=== PATIENT | female | born 1955 | race Two or more races ===

== ENCOUNTER 2016-09-20 10:48 | Inpatient (IN) | payer OTHER ==
[~2016-09-20] VITALS: Ht 170.2 cm; Wt 88.9 kg
[2016-09-20 12:35] LABS: APPEARANCE,URINE CLEAR; KETONES,URINE NEGATIVE (NEGATIVE); LEUKOCYTE ESTERASE ,URINE NEGATIVE (NEGATIVE); NITRITE,URINE NEGATIVE (NEGATIVE); PH,URINE 5 (4.5-8.0); PROTEIN,URINE NEGATIVE (NEGATIVE); UROBILINOGEN,URINE NORMAL MG/DL (0.0-1.0)
[2016-09-20 12:36] LABS: BASOPHILS % (AUTO) 1.1 % (0.0-2.0); EOSINOPHILS % (AUTO) 1.6 % (0.0-3.0); LYMPHOCYTES % (AUTO) 33.4 % (20.0-45.0); MEAN CORPUSCULAR HEMOGLOBIN 29.8 PG (27.0-31.0); MEAN CORPUSCULAR VOLUME 90 FL (80-99); MONOCYTES % (AUTO) 5.8 % (1.0-10.0); PLATELET COUNT 232 K/UL (150-450); RED BLOOD COUNT 4.42 M/UL (4.20-5.40); RED CELL DISTRIBUTION WIDTH 12.5 % (11.6-14.8); WHITE BLOOD COUNT 6.4 K/UL (4.8-10.8)
--- NOTE | 2016-09-20 12:40 | Diagnostic Imaging Report ---
Indications: Chest pain Technique: Portable AP chest Findings: Comparison: None Focal opacity with straight upper margin is present within or overlies the medial aspect of the right lung base. Focal soft tissue convexity left cardiophrenic angle. Bones and extra pulmonary soft tissues, cardiomediastinal silhouette, pulmonary vasculature and parenchyma, and pleural surfaces are otherwise unremarkable IMPRESSION: Right basal opacity may represent right middle lobe atelectasis or prominent epicardial fat pad. Prominent epicardial fat pad also present on the left. Otherwise negative portable AP chest
[2016-09-20 12:51] LABS: TROPONIN I < 0.30 ng/mL (<=0.30)
[2016-09-20 12:52] LABS: ALANINE AMINOTRANSFERASE 9 U/L (3-33); ALBUMIN/GLOBULIN RATIO 1.5 (1.0-2.7); ANION GAP 14 (5-15); ASPARTATE AMINO TRANSFERASE 15 U/L (5-40); CALCIUM 9.4 mg/dL (8.6-10.2); CARBON DIOXIDE 26 mEQ/L (20-30); CHLORIDE 99 mEQ/L (98-107); CREATININE 0.8 mg/dL (0.5-0.9); GLOMERULAR FILTRATION RATE > 60 mL/min (>60); HEMOLYSIS 16; SODIUM 139 mEQ/L (135-145); TOTAL PROTEIN 7.5 g/dL (6.6-8.7)
[2016-09-20 13:02] LABS: CKMB < 1.5 ng/mL (< 3.8)
[2016-09-20 13:20] VITALS: BP 129/5
--- NOTE | 2016-09-20 15:53 | Emergency Room Report ---
History of Present Illness General Chief Complaint: Chest Pain Source: Patient Present Illness HPI 61-year-old female presents ED complaining of chest pain x2 days. states pain is left-sided, throbbing, 7/10, radiating down the left arm. No other aggravating or relieving factors. Denies shortness of breath. Denies smoking or drug use. Denies trauma. No other aggravating relieving factors. Denies any other associated symptoms Allergies: Coded Allergies: MORPHINE (Verified Allergy, Unknown, 09/20/16) COPIED FROM UNCODED SECTION Patient History Past Medical History: psych hx Past Surgical History: none Pertinent Family History: none Social History: Denies: alcohol use, drug use, smoking Now: No Immunizations: UTD Reviewed Nursing Documentation: PMH: Agreed, PSxH: Agreed Nursing Documentation-PMH Past Medical History: No History, Except For Hx Cancer: Yes - hairy cell leukemia 1999 History Of Psychiatric Problem: Yes - schizophrenia Review of Systems All Other Systems: negative except mentioned in HPI Physical Exam Vital Signs Date Time Temp Pulse Resp B/P Pulse Ox O2 Delivery O2 Flow Rate FiO2 09/20/16 10:59 83 21 137/71 96 Room Air Sp02 EP Interpretation: reviewed, normal General Appearance: no apparent distress, alert, GCS 15, non-toxic Head: normocephalic, atraumatic Eyes: bilateral eye PERRL, bilateral eye normal inspection ENT: hearing grossly normal, normal pharynx, no angioedema, normal voice Neck: full range of motion, supple/symm/no masses Respiratory: chest non-tender, lungs clear, normal breath sounds, speaking full sentences Cardiovascular #1: regular rate, rhythm, no edema Cardiovascular #2: 2+ carotid (R), 2+ carotid (L), 2+ radial (R), 2+ radial (L) , 2+ dorsalis pedis (R), 2+ dorsalis pedis (L) Gastrointestinal: normal bowel sounds, non tender, soft, non-distended, no guarding, no rebound Rectal: deferred Genitourinary: normal inspection, no CVA tenderness Musculoskeletal: back normal, gait/station normal, normal range of motion, non- tender Neurologic: alert, oriented x3, responsive, motor strength/tone normal, sensory intact, speech normal Psychiatric: judgement/insight normal, memory normal, mood/affect normal, no suicidal/homicidal ideation Reflexes: 3+ bicep (R), 3+ bicep (L), 3+ tricep (R), 3+ tricep (L), 3+ knee (R) , 3+ knee (L) Skin: normal color, no rash, warm/dry, well hydrated Lymphatic: no adenopathy Medical Decision Making Diagnostic Impression: Primary Impression: ACS (acute coronary syndrome) ER Course Hospital Course 61-year-old female presents ED complaining of left-sided chest pain x2 days Differential diagnoses include: MA/unstable angina, contusion, muscle strain, PTX, rib fracture Clinical course Patient placed on stretcher. on cardiac catheterization technician. After initial history and physical I ordered labs, EKG, chest x-ray, ASA labs reviewed- no leukocytosis, hb/hct stable, electrolytes ok, trop negative EKG - NSR, no acute ischemic changes Chest x-ray- no acute process Case discussed with Dr. Kimbrough and he agreed to accept the patient to his service for further care and support I. I feel this is a highly complex case requiring extensive working including EKG/Rhythm strip, Xray/CT/US, Blood/urine lab work, repeat exams while in ED, and administration of strong opiates/narcotics for pain control, admission to hospital or close patient follow up. Diagnosis - ACS admitted to telemetry in serious condition Labs Test 09/20/16 11:50 09/20/16 12:05 Urine Color Yellow Urine Appearance Clear Urine pH 5 (4.5-8.0) Urine Specific [place] 1.020 (1.005-1.035) Urine Protein Negative (NEGATIVE) Urine Glucose (UA) Negative (NEGATIVE) Urine Ketones Negative (NEGATIVE) Urine Occult Blood Negative (NEGATIVE) Urine Nitrite Negative (NEGATIVE) Urine Bilirubin Negative (NEGATIVE) Urine Urobilinogen Normal MG/DL (0.0-1.0) Urine Leukocyte Esterase Negative (NEGATIVE) Urine Opiates Screen Negative (NEGATIVE) Urine Barbiturates Screen Negative (NEGATIVE) Phencyclidine (PCP) Screen Negative (NEGATIVE) Urine Amphetamines Screen Negative (NEGATIVE) Urine Benzodiazepines Screen Negative (NEGATIVE) Urine Cocaine Screen Negative (NEGATIVE) Urine Marijuana (THC) Screen Negative (NEGATIVE) White Blood Count 6.4 K/UL (4.8-10.8) Red Blood Count 4.42 M/UL (4.20-5.40) Hemoglobin 13.1 G/DL (12.0-16.0) Hematocrit 39.9 % (37.0-47.0) Mean Corpuscular Volume 90 FL (80-99) Mean Corpuscular Hemoglobin 29.8 PG (27.0-31.0) Mean Corpuscular Hemoglobin Concent 33.0 G/DL (32.0-36.0) Red Cell Distribution Width 12.5 % (11.6-14.8) Platelet Count 232 K/UL (150-450) Mean Platelet Volume 8.0 FL (6.5-10.1) Neutrophils (%) (Auto) 58.0 % (45.0-75.0) Lymphocytes (%) (Auto) 33.4 % (20.0-45.0) Monocytes (%) (Auto) 5.8 % (1.0-10.0) Eosinophils (%) (Auto) 1.6 % (0.0-3.0) Basophils (%) (Auto) 1.1 % (0.0-2.0) Sodium Level 139 mEQ/L (135-145) Potassium Level 4.0 mEQ/L (3.4-4.9) Chloride Level 99 mEQ/L (98-107) Carbon Dioxide Level 26 mEQ/L (20-30) Anion Gap 14 (5-15) Blood Urea Nitrogen 9 mg/dL (7-23) Creatinine 0.8 mg/dL (0.5-0.9) Estimat Glomerular Filtration Rate > 60 mL/min (>60) Glucose Level 90 mg/dL (74-106) Calcium Level 9.4 mg/dL (8.6-10.2) Total Bilirubin 0.3 mg/dL (0.0-1.2) Aspartate Amino Transf (AST/SGOT) 15 U/L (5-40) Alanine Aminotransferase (ALT/SGPT) 9 U/L (3-33) Alkaline Phosphatase 121 U/L (35-104) Total Creatine Kinase 100 U/L (26-140) Creatine Kinase MB < 1.5 ng/mL (< 3.8) Creatine Kinase MB Relative Index Troponin I < 0.30 ng/mL (<=0.30) Pro-B-Type Natriuretic Peptide 35 pg/mL (0-125) Total Protein 7.5 g/dL (6.6-8.7) Albumin 4.5 g/dL (3.5-5.2) Globulin 3.0 g/dL Albumin/Globulin Ratio 1.5 (1.0-2.7) EKG Diagnostic Results Rate: normal Rhythm: NSR ST Segments: no acute changes ASA given to the pt in ED: No Rhythm Strip Diag. Results EP Interpretation: yes Rhythm: NSR, no PVC's, no ectopy Chest X-Ray Diagnostic Results EP Interpretation: No Findings: no consolidation, no effusion, no pneumothorax, no acute cardiopulmonary disease Number of Views: 1 Last Vital Signs Date Time Temp Pulse Resp B/P Pulse Ox O2 Delivery O2 Flow Rate FiO2 09/20/16 13:20 90 21 129/5 96 Room Air Status: improved Disposition: ADMITTED INPATIENT Condition: Serious Referrals: ESPERANZA RUBIN,REFERRING (PCP) ARVIN HILARIO M.D. Sep 20, 2016 15:53
[2016-09-20 16:01] VITALS: BP 138/75
[2016-09-20] MEDS ORDERED: PANTOPRAZOLE SO40 MG ORAL (16:01)
[2016-09-20] MEDS ORDERED: AMBIEN5 MG ORAL (16:01)
--- NOTE | 2016-09-20 16:24 | Cardiology Progress Note ---
Assessment/Plan Assessment/Plan atypical chest pain wood cell elukemia hs in remission since 1999 obeisty panic disorder all torp neg despit 2 dyas of pain ekg neg stress test in am then fermín if neg [id number] Objective Last 24 Hour Vital Signs Date Time Temp Pulse Resp B/P Pulse Ox O2 Delivery O2 Flow Rate FiO2 09/20/16 16:01 83 21 138/75 97 Room Air 09/20/16 13:20 90 21 129/5 96 Room Air 09/20/16 11:33 83 21 Room Air 09/20/16 10:59 83 21 137/71 96 Room Air Laboratory Tests Test 09/20/16 11:50 09/20/16 12:05 Urine Color Yellow Urine Appearance Clear Urine pH 5 (4.5-8.0) Urine Specific [place] 1.020 (1.005-1.035) Urine Protein Negative (NEGATIVE) Urine Glucose (UA) Negative (NEGATIVE) Urine Ketones Negative (NEGATIVE) Urine Occult Blood Negative (NEGATIVE) Urine Nitrite Negative (NEGATIVE) Urine Bilirubin Negative (NEGATIVE) Urine Urobilinogen Normal MG/DL (0.0-1.0) Urine Leukocyte Esterase Negative (NEGATIVE) Urine Opiates Screen Negative (NEGATIVE) Urine Barbiturates Screen Negative (NEGATIVE) Phencyclidine (PCP) Screen Negative (NEGATIVE) Urine Amphetamines Screen Negative (NEGATIVE) Urine Benzodiazepines Screen Negative (NEGATIVE) Urine Cocaine Screen Negative (NEGATIVE) Urine Marijuana (THC) Screen Negative (NEGATIVE) White Blood Count 6.4 K/UL (4.8-10.8) Red Blood Count 4.42 M/UL (4.20-5.40) Hemoglobin 13.1 G/DL (12.0-16.0) Hematocrit 39.9 % (37.0-47.0) Mean Corpuscular Volume 90 FL (80-99) Mean Corpuscular Hemoglobin 29.8 PG (27.0-31.0) Mean Corpuscular Hemoglobin Concent 33.0 G/DL (32.0-36.0) Red Cell Distribution Width 12.5 % (11.6-14.8) Platelet Count 232 K/UL (150-450) Mean Platelet Volume 8.0 FL (6.5-10.1) Neutrophils (%) (Auto) 58.0 % (45.0-75.0) Lymphocytes (%) (Auto) 33.4 % (20.0-45.0) Monocytes (%) (Auto) 5.8 % (1.0-10.0) Eosinophils (%) (Auto) 1.6 % (0.0-3.0) Basophils (%) (Auto) 1.1 % (0.0-2.0) Sodium Level 139 mEQ/L (135-145) Potassium Level 4.0 mEQ/L (3.4-4.9) Chloride Level 99 mEQ/L (98-107) Carbon Dioxide Level 26 mEQ/L (20-30) Anion Gap 14 (5-15) Blood Urea Nitrogen 9 mg/dL (7-23) Creatinine 0.8 mg/dL (0.5-0.9) Estimat Glomerular Filtration Rate > 60 mL/min (>60) Glucose Level 90 mg/dL (74-106) Calcium Level 9.4 mg/dL (8.6-10.2) Total Bilirubin 0.3 mg/dL (0.0-1.2) Aspartate Amino Transf (AST/SGOT) 15 U/L (5-40) Alanine Aminotransferase (ALT/SGPT) 9 U/L (3-33) Alkaline Phosphatase 121 U/L (35-104) H Total Creatine Kinase 100 U/L (26-140) Creatine Kinase MB < 1.5 ng/mL (< 3.8) Creatine Kinase MB Relative Index Troponin I < 0.30 ng/mL (<=0.30) Pro-B-Type Natriuretic Peptide 35 pg/mL (0-125) Total Protein 7.5 g/dL (6.6-8.7) Albumin 4.5 g/dL (3.5-5.2) Globulin 3.0 g/dL Albumin/Globulin Ratio 1.5 (1.0-2.7) AMBAR ALVARADO Sep 20, 2016 16:24
[2016-09-20] MEDS ORDERED: Nitroglycerin Subl 0.4mg tab (Bottle Of 25) SL PRN (16:30)
[2016-09-20] MEDS ORDERED: Morphine Sulfate 2mg/ml Inj IVP PRN (16:30)
[2016-09-20] MEDS ORDERED: Enalaprilat 2.5mg/2ml Inj IV PRN (16:30)
[2016-09-20] MEDS ORDERED: Miralax 17gm pkt ORAL PRN (16:30)
[2016-09-20] MEDS ORDERED: Diltiazem 25mg/5ml IV PRN (16:30)
[2016-09-20] MEDS ORDERED: DuoNeb 0.5-3(2.5)mg/3ml neb HHN PRN (16:30)
[2016-09-20 16:53] VITALS: BP 121/61
--- NOTE | 2016-09-20 20:28 | Consultation ---
DATE OF CONSULTATION: 09/20/2016 CARDIOLOGY CONSULTATION REFERRING PHYSICIAN: Cheyanne Kimbrough M.D. REASON FOR REFERRAL: Chest pain. HISTORY OF PRESENT ILLNESS: This is a 61-year-old female, who presents to the hospital because of two days of pain in the chest with basically a sensation of dull ache, occasional sharp shooting pain in the left side of the breast. There is no association with activity or coughing or taking a deep breath or twisting or turning. No relieving exacerbating factors identified by the patient. She has occasionally during the past few days vomit, a panic mode at times with some shortness of breath associated with the pain. She tries to calm herself down. Occasionally, she gets up in the middle of the night because of the panic and then takes some panic anxiety medication and she goes back to bed. She uses two to three pillows for her reflux. She occasionally has palpitations, occasionally has dizziness or lightheadedness. The pains in her chest have been ongoing constantly for the last two days. No relieving exacerbating factors again identified. The patient does have some numbness and tingling sensation occasionally in the left arm, but that is intermittent and not necessarily associated with the pain. PAST MEDICAL HISTORY: Positive for history of hairy cell leukemia, which she is felt to be in remission since 1999 and she has gastroesophageal reflux disease and no heart attack. No cancer. Otherwise no stroke, no hepatitis, or tuberculosis. No asthma or emphysema. No ulcers. No kidney problems, liver problems, thyroid problems, or anemia. She does have some arthritis in her knees. ALLERGIES: She is allergic to morphine. SOCIAL HISTORY: She does not smoke in the past two days. She admits to having smoking one cigarette every two days and no drugs for the past two years. She used to use crack cocaine before and no alcohol. REVIEW OF SYSTEMS: Gastrointestinal: She denies any nausea, vomiting, diarrhea, or constipation. Genitourinary: Negative. Pulmonary: Occasional coughing. Constitutional: Negative. Neurologic: Numbness, tingling, and sensation in the patient's left arm. PHYSICAL EXAMINATION: GENERAL: Shows an obese middle-aged female, in no apparent distress. NECK: Supple. No jugular venous distention. LUNGS: Clear to auscultation and percussion. CARDIAC: S1 is normal. S2 is normal. Regular rate and rhythm. No heaves, thrills, gallops, or rubs are noted. The area of the sternum does not appear to be tender to palpation. However, the area just lateral to the sternum on palpation with the stethoscope seemed to cause patient's pain. This is different than the pain that she has been experiencing for the past two days. ABDOMEN: Soft and nontender. Positive bowel sounds. Obese. EXTREMITIES: No clubbing, cyanosis, nor edema. NEUROLOGIC: She is awake, alert, responsive, in no apparent distress. LABORATORY AND DIAGNOSTIC DATA: White count of 6.2 with hemoglobin 13.1, and platelets 232,000. Sodium is 139, potassium 4.0, chloride 99, bicarbonate 26, BUN of 9, creatinine 0.8, and glucose of 90. Liver function tests are all normal. Alkaline phosphatase is 100.1. Troponin is less than 0.01. ProBNP is only 35. Total protein is 7.5. Albumin is 4.5. Her urinalysis is fairly unremarkable. Toxicology screen is negative. Her EKG is completely normal and chest x-ray has been performed interpreted by the radiologist, right basilar opacity with right middle lobe atelectasis or prominent, epicardial fat pad, otherwise negative. ASSESSMENT: 1. Atypical chest pain. 2. Anxiety and panic disorder. 3. Gastroesophageal reflux disease. 4. Overweight. 5. History of hairy cell leukemia. Dr. Kimbrough, this patient was seen in cardiac consultation. The patient does not have any changes on her EKG. There is no evidence of cardiac enzyme abnormality despite two days of constant pain and no electrocardiographic changes. She has an anxiety component because I am not able to reproduce her pain on palpation. I would recommend that she undergo a stress test prior to discharge and I will order that as such for tomorrow. Vidal Basurto M.D. DR: ANJUM JOB#: [id number] CC:
[2016-09-20] MEDS: Heparin 5000 units/ml inj SUBQ SCH (20:49)
[2016-09-20 21:53] LABS: TROPONIN I < 0.30 ng/mL (<=0.30)
--- NOTE | 2016-09-20 23:26 | History and Physical ---
History of Present Illness General Date patient seen: Sep 20, 2016 Reason for Hospitalization: Chest Pain Present Illness HPI 61-year-old female with hx of hairy cell leukemia presented to ED complaining of chest pain, left-sided, throbbing, 7/10, radiating down the left arm for the last two days. No other aggravating or relieving factors. Denies shortness of breath. Denies smoking or drug use.Pt is admitted to rule out ACS. Allergies: Coded Allergies: MORPHINE (Verified Allergy, Unknown, 09/20/16) COPIED FROM UNCODED SECTION Medication History Scheduled Pantoprazole* (Pantoprazole*), 40 MG ORAL DAILY, (Reported) Scheduled PRN Zolpidem Tartrate* (Ambien*), 5 MG ORAL BEDTIME PRN for Insomnia, (Reported) Patient History Healthcare decision maker Resuscitation status Full Code Advanced Directive on File Past Medical/Surgical History Past Medical/Surgical History: (1) Hairy cell leukemia Review of Systems All Other Systems: negative except mentioned in HPI Physical Exam General Appearance: WD/WN Lines, tubes and drains: peripheral HEENT: normocephalic, atraumatic Neck: non-tender, normal alignment Respiratory/Chest: chest wall non-tender, lungs clear Cardiovascular/Chest: normal peripheral pulses, normal rate, regular rhythm Abdomen: normal bowel sounds Genitourinary/Rectal: normal genital exam Extremities: normal range of motion Skin Exam: normal pigmentation Last 24 Hour Vital Signs Date Time Temp Pulse Resp B/P Pulse Ox O2 Delivery O2 Flow Rate FiO2 09/20/16 20:00 97 09/20/16 19:00 70 18 Room Air 09/20/16 18:01 75 21 122/64 97 Room Air 09/20/16 16:53 72 21 121/61 97 Room Air 09/20/16 16:01 83 21 138/75 97 Room Air 09/20/16 13:20 90 21 129/5 96 Room Air 09/20/16 11:33 83 21 Room Air 09/20/16 10:59 83 21 137/71 96 Room Air Laboratory Tests Test 09/20/16 11:50 09/20/16 12:05 09/20/16 21:15 Urine Color Yellow Urine Appearance Clear Urine pH 5 (4.5-8.0) Urine Specific [place] 1.020 (1.005-1.035) Urine Protein Negative (NEGATIVE) Urine Glucose (UA) Negative (NEGATIVE) Urine Ketones Negative (NEGATIVE) Urine Occult Blood Negative (NEGATIVE) Urine Nitrite Negative (NEGATIVE) Urine Bilirubin Negative (NEGATIVE) Urine Urobilinogen Normal MG/DL (0.0-1.0) Urine Leukocyte Esterase Negative (NEGATIVE) Urine Opiates Screen Negative (NEGATIVE) Urine Barbiturates Screen Negative (NEGATIVE) Phencyclidine (PCP) Screen Negative (NEGATIVE) Urine Amphetamines Screen Negative (NEGATIVE) Urine Benzodiazepines Screen Negative (NEGATIVE) Urine Cocaine Screen Negative (NEGATIVE) Urine Marijuana (THC) Screen Negative (NEGATIVE) White Blood Count 6.4 K/UL (4.8-10.8) Red Blood Count 4.42 M/UL (4.20-5.40) Hemoglobin 13.1 G/DL (12.0-16.0) Hematocrit 39.9 % (37.0-47.0) Mean Corpuscular Volume 90 FL (80-99) Mean Corpuscular Hemoglobin 29.8 PG (27.0-31.0) Mean Corpuscular Hemoglobin Concent 33.0 G/DL (32.0-36.0) Red Cell Distribution Width 12.5 % (11.6-14.8) Platelet Count 232 K/UL (150-450) Mean Platelet Volume 8.0 FL (6.5-10.1) Neutrophils (%) (Auto) 58.0 % (45.0-75.0) Lymphocytes (%) (Auto) 33.4 % (20.0-45.0) Monocytes (%) (Auto) 5.8 % (1.0-10.0) Eosinophils (%) (Auto) 1.6 % (0.0-3.0) Basophils (%) (Auto) 1.1 % (0.0-2.0) Sodium Level 139 mEQ/L (135-145) Potassium Level 4.0 mEQ/L (3.4-4.9) Chloride Level 99 mEQ/L (98-107) Carbon Dioxide Level 26 mEQ/L (20-30) Anion Gap 14 (5-15) Blood Urea Nitrogen 9 mg/dL (7-23) Creatinine 0.8 mg/dL (0.5-0.9) Estimat Glomerular Filtration Rate > 60 mL/min (>60) Glucose Level 90 mg/dL (74-106) Calcium Level 9.4 mg/dL (8.6-10.2) Total Bilirubin 0.3 mg/dL (0.0-1.2) Aspartate Amino Transf (AST/SGOT) 15 U/L (5-40) Alanine Aminotransferase (ALT/SGPT) 9 U/L (3-33) Alkaline Phosphatase 121 U/L (35-104) H Total Creatine Kinase 100 U/L (26-140) Creatine Kinase MB < 1.5 ng/mL (< 3.8) Creatine Kinase MB Relative Index Troponin I < 0.30 ng/mL (<=0.30) < 0.30 ng/mL (<=0.30) Pro-B-Type Natriuretic Peptide 35 pg/mL (0-125) Total Protein 7.5 g/dL (6.6-8.7) Albumin 4.5 g/dL (3.5-5.2) Globulin 3.0 g/dL Albumin/Globulin Ratio 1.5 (1.0-2.7) Height (Feet): 5 Height (Inches): 7.00 Weight (Pounds): 196 Medications Current Medications Medications (Trade) Dose Ordered Sig/Rustam Route PRN Reason Start Time Stop Time Status Last Admin Dose Admin Acetaminophen (Tylenol) 650 mg Q4H PRN ORAL FEVER 09/20/16 16:30 10/20/16 16:29 09/20/16 19:12 Albuterol/ Ipratropium (DuoNeb 0.5-3(2.5)mg/3ml) 3 ml Q4H PRN HHN Shortness of Breath 09/20/16 16:30 09/25/16 16:29 Aspirin (ASA) 162 mg DAILY ORAL 09/21/16 09:00 10/21/16 08:59 Diltiazem HCl (Cardizem) 10 mg EVERY HOUR PRN IV heart rate more than 120, 09/20/16 16:30 10/20/16 16:29 Enalaprilat (Vasotec) 2.5 mg EVERY 6 HOURS PRN IV sbp more than 160 09/20/16 16:30 10/20/16 16:29 Heparin Sodium (Porcine) (Heparin 5000 units/ml) 5,000 units EVERY 12 HOURS SUBQ 09/20/16 21:00 10/20/16 20:59 09/20/16 20:49 Ketorolac Tromethamine (Toradol 30mg) 30 mg Q6H PRN IV moderate pain ( 4-6) 09/20/16 16:30 09/25/16 16:29 Nitroglycerin (Ntg) 0.4 mg Q5M PRN SL Prn Chest Pain 09/20/16 16:30 10/20/16 16:29 Ondansetron HCl (Zofran) 4 mg Q6H PRN IVP Nausea & Vomiting 09/20/16 16:30 10/20/16 16:29 Pantoprazole (Protonix) 40 mg DAILY ORAL 09/21/16 09:00 10/21/16 08:59 Polyethylene Glycol (Miralax) 17 gm DAILYPRN PRN ORAL Constipation 09/20/16 16:30 10/20/16 16:29 Temazepam (Restoril) 15 mg HSPRN PRN ORAL Insomnia 09/20/16 16:30 09/27/16 16:29 09/20/16 22:18 Assessment/Plan Problem List: (1) ACS (acute coronary syndrome) ICD Codes: I24.9 - Acute ischemic heart disease, unspecified SNOMED: 973016841 Assessment/Plan serial ekg, torponin echocardiogram cardiology to see stress testing in am. MALOU TAYLOR Sep 20, 2016 23:26
[2016-09-21] VITALS: BP 132/70
[2016-09-21 04:00] VITALS: BP 119/73
[2016-09-21 06:28] LABS: EOSINOPHILS % (AUTO) 2.8 % (0.0-3.0); LYMPHOCYTES % (AUTO) 31.1 % (20.0-45.0); MEAN CORPUSCULAR HEMOGLOBIN 29.8 PG (27.0-31.0); MEAN CORPUSCULAR HGB CONC 33.2 G/DL (32.0-36.0); MEAN CORPUSCULAR VOLUME 90 FL (80-99); MONOCYTES % (AUTO) 5.6 % (1.0-10.0); NEUTROPHILS % (AUTO) 59.5 % (45.0-75.0); PLATELET COUNT 224 K/UL (150-450); RED BLOOD COUNT 4.28 M/UL (4.20-5.40); RED CELL DISTRIBUTION WIDTH 12.2 % (11.6-14.8); WHITE BLOOD COUNT 6.1 K/UL (4.8-10.8)
[2016-09-21 06:43] LABS: INR 1.1 (0.9-1.1)
[2016-09-21 06:49] LABS: CHOLESTEROL 206 mg/dL (< 200); CHOLESTEROL/HDL RATIO 5.6 (3.3-4.4); CRP QUANT < 0.3 mg/dL (< 0.5); HEMOLYSIS 4; LDL CHOLESTEROL (CALC.) 147 mg/dL (60-99)
[2016-09-21 07:01] LABS: TROPONIN I < 0.30 ng/mL (<=0.30)
[2016-09-21 07:49] VITALS: BP 122/65
[2016-09-21] MEDS: Aspirin Baby 81mg ORAL SCH (08:37)
[2016-09-21] MEDS: Heparin 5000 units/ml inj SUBQ SCH ×2 (08:39→20:31)
[2016-09-21 11:18] VITALS: BP 126/71
--- NOTE | 2016-09-21 13:15 | Pulmonology Progress Note ---
Assessment/Plan Problems: (1) ACS (acute coronary syndrome) Assessment/Plan awaiting stress study phenergen for cough Subjective ROS Limited/Unobtainable: No Constitutional: Reports: no symptoms HEENT: Repors: no symptoms Respiratory: Reports: no symptoms Genitourinary: Reports: no symptoms Allergies: Coded Allergies: MORPHINE (Verified Allergy, Unknown, 09/20/16) COPIED FROM UNCODED SECTION Objective Last 24 Hour Vital Signs Date Time Temp Pulse Resp B/P Pulse Ox O2 Delivery O2 Flow Rate FiO2 09/21/16 11:18 96.8 85 18 126/71 99 Room Air 09/21/16 08:00 88 09/21/16 07:49 97.2 78 18 122/65 100 Room Air 09/21/16 07:08 85 18 99 Room Air 21 09/21/16 06:48 21 09/21/16 06:48 84 18 98 Room Air 21 09/21/16 06:47 84 18 Room Air 09/21/16 04:00 72 09/21/16 04:00 97.3 71 20 119/73 94 Room Air 09/21/16 00:00 97.9 71 20 132/70 98 Room Air 09/21/16 00:00 78 09/20/16 20:00 97 09/20/16 19:00 70 18 Room Air 09/20/16 18:01 75 21 122/64 97 Room Air 09/20/16 16:53 72 21 121/61 97 Room Air 09/20/16 16:01 83 21 138/75 97 Room Air 09/20/16 13:20 90 21 129/5 96 Room Air Intake and Output 09/20/16 09/21/16 19:00 07:00 Intake Total 0 ml 240 ml Balance 0 ml 240 ml Intake Oral 0 ml 240 ml # Voids 2 # Bowel Movements 1 General Appearance: WD/WN, no acute distress HEENT: normocephalic, atraumatic Respiratory/Chest: chest wall non-tender, lungs clear Breasts: no masses Cardiovascular: normal peripheral pulses, normal rate, regular rhythm Abdomen: normal bowel sounds, soft, non tender Extremities: no cyanosis Skin: no rash, no lesions Lymphatic: no neck adenopathy Musculoskeletal: normal muscle bulk Laboratory Tests 09/20/16 21:15: Troponin I < 0.30 09/21/16 05:20: Troponin I < 0.30, White Blood Count 6.1, Red Blood Count 4.28, Hemoglobin 12.8 , Hematocrit 38.4, Mean Corpuscular Volume 90, Mean Corpuscular Hemoglobin 29.8 , Mean Corpuscular Hemoglobin Concent 33.2, Red Cell Distribution Width 12.2, Platelet Count 224, Mean Platelet Volume 7.0, Neutrophils (%) (Auto) 59.5, Lymphocytes (%) (Auto) 31.1, Monocytes (%) (Auto) 5.6, Eosinophils (%) (Auto) 2.8, Basophils (%) (Auto) 1.0, Prothrombin Time 11.0, Prothromb Time International Ratio 1.1, Activated Partial Thromboplast Time 31, C-Reactive Protein, Quantitative < 0.3, Triglycerides Level 108, Cholesterol Level 206H, LDL Cholesterol 147H, HDL Cholesterol 37, Cholesterol/HDL Ratio 5.6H, Thyroid Stimulating Hormone (TSH) 1.570 Current Medications Medications (Trade) Dose Ordered Sig/Rustam Route PRN Reason Start Time Stop Time Status Last Admin Dose Admin Acetaminophen (Tylenol) 650 mg Q4H PRN ORAL Mild Pain/Temp > 100.5 09/21/16 12:30 10/21/16 12:29 09/21/16 12:15 Albuterol/ Ipratropium (DuoNeb 0.5-3(2.5)mg/3ml) 3 ml Q4H PRN HHN Shortness of Breath 09/20/16 16:30 09/25/16 16:29 09/21/16 06:48 Aspirin (ASA) 162 mg DAILY ORAL 09/21/16 09:00 10/21/16 08:59 09/21/16 08:37 Diltiazem HCl (Cardizem) 10 mg EVERY HOUR PRN IV heart rate more than 120, 09/20/16 16:30 10/20/16 16:29 Enalaprilat (Vasotec) 2.5 mg EVERY 6 HOURS PRN IV sbp more than 160 09/20/16 16:30 10/20/16 16:29 Heparin Sodium (Porcine) (Heparin 5000 units/ml) 5,000 units EVERY 12 HOURS SUBQ 09/20/16 21:00 10/20/16 20:59 09/21/16 08:39 Ketorolac Tromethamine (Toradol 30mg) 30 mg Q6H PRN IV moderate pain ( 4-6) 09/20/16 16:30 09/25/16 16:29 Nitroglycerin (Ntg) 0.4 mg Q5M PRN SL Prn Chest Pain 09/20/16 16:30 10/20/16 16:29 Ondansetron HCl (Zofran) 4 mg Q6H PRN IVP Nausea & Vomiting 09/20/16 16:30 10/20/16 16:29 Pantoprazole (Protonix) 40 mg DAILY ORAL 09/21/16 09:00 10/21/16 08:59 09/21/16 08:37 Polyethylene Glycol (Miralax) 17 gm DAILYPRN PRN ORAL Constipation 09/20/16 16:30 10/20/16 16:29 Temazepam (Restoril) 15 mg HSPRN PRN ORAL Insomnia 09/20/16 16:30 09/27/16 16:29 09/20/16 22:18 MALOU TAYLOR Sep 21, 2016 13:15
[2016-09-21] MEDS ORDERED: Promethazine/Codeine 5ml UD ORAL PRN (14:00)
[2016-09-21 16:00] VITALS: BP 160/96
[2016-09-21] MEDS ORDERED: Vancomycin 1250mg/D5W 275ml IVPB ONE ×2 (18:00)
[2016-09-21] MEDS: Ketorolac 30mg Inj IV PRN (18:51)
--- NOTE | 2016-09-21 19:40 | Cardiology Progress Note ---
Assessment/Plan Assessment/Plan 1. Atypical chest pain. 2. Anxiety and panic disorder. 3. Gastroesophageal reflux disease. 4. Overweight. 5. History of hairy cell leukemia trop negt ekg natividad echo neg stress test neg dc tle ok to dc form cardiac viedw point Subjective Cardiovascular: Reports: lightheadedness, Denies: chest pain Respiratory: Denies: shortness of breath Gastrointestinal/Abdominal: Denies: abdomen distended Genitourinary: Denies: burning Subjective head ache adn leg paijn Objective Last 24 Hour Vital Signs Date Time Temp Pulse Resp B/P Pulse Ox O2 Delivery O2 Flow Rate FiO2 09/21/16 19:35 112 18 Room Air 09/21/16 17:27 100.0 09/21/16 16:00 101.5 113 21 160/96 98 Room Air 09/21/16 11:18 96.8 85 18 126/71 99 Room Air 09/21/16 08:00 88 09/21/16 07:49 97.2 78 18 122/65 100 Room Air 09/21/16 07:08 85 18 99 Room Air 21 09/21/16 06:48 21 09/21/16 06:48 84 18 98 Room Air 21 09/21/16 06:47 84 18 Room Air 09/21/16 04:00 72 09/21/16 04:00 97.3 71 20 119/73 94 Room Air 09/21/16 00:00 97.9 71 20 132/70 98 Room Air 09/21/16 00:00 78 09/20/16 20:00 97 General Appearance: no apparent distress, alert Neck: supple Cardiovascular: normal rate, regular rhythm Respiratory/Chest: lungs clear, normal breath sounds Abdomen: normal bowel sounds, non tender, soft Extremities: no swelling Intake and Output 09/20/16 09/21/16 19:00 07:00 Intake Total 0 ml 240 ml Balance 0 ml 240 ml Intake Oral 0 ml 240 ml # Voids 2 # Bowel Movements 1 Laboratory Tests Test 09/20/16 21:15 09/21/16 05:20 Troponin I < 0.30 ng/mL (<=0.30) < 0.30 ng/mL (<=0.30) White Blood Count 6.1 K/UL (4.8-10.8) Red Blood Count 4.28 M/UL (4.20-5.40) Hemoglobin 12.8 G/DL (12.0-16.0) Hematocrit 38.4 % (37.0-47.0) Mean Corpuscular Volume 90 FL (80-99) Mean Corpuscular Hemoglobin 29.8 PG (27.0-31.0) Mean Corpuscular Hemoglobin Concent 33.2 G/DL (32.0-36.0) Red Cell Distribution Width 12.2 % (11.6-14.8) Platelet Count 224 K/UL (150-450) Mean Platelet Volume 7.0 FL (6.5-10.1) Neutrophils (%) (Auto) 59.5 % (45.0-75.0) Lymphocytes (%) (Auto) 31.1 % (20.0-45.0) Monocytes (%) (Auto) 5.6 % (1.0-10.0) Eosinophils (%) (Auto) 2.8 % (0.0-3.0) Basophils (%) (Auto) 1.0 % (0.0-2.0) Prothrombin Time 11.0 SEC (9.30-11.50) Prothromb Time International Ratio 1.1 (0.9-1.1) Activated Partial Thromboplast Time 31 SEC (23-33) C-Reactive Protein, Quantitative < 0.3 mg/dL (< 0.5) Triglycerides Level 108 mg/dL (< 150) Cholesterol Level 206 mg/dL (< 200) H LDL Cholesterol 147 mg/dL (60-99) H HDL Cholesterol 37 mg/dL (> 60) Cholesterol/HDL Ratio 5.6 (3.3-4.4) H Thyroid Stimulating Hormone (TSH) 1.570 uIU/mL (0.300-4.500) AMBAR ALVARADO Sep 21, 2016 19:40
[2016-09-21 20:00] VITALS: BP 133/57
[2016-09-21 21:02] LABS: APPEARANCE,URINE CLEAR; KETONES,URINE NEGATIVE (NEGATIVE); LEUKOCYTE ESTERASE ,URINE NEGATIVE (NEGATIVE); NITRITE,URINE NEGATIVE (NEGATIVE); PH,URINE 5 (4.5-8.0); PROTEIN,URINE NEGATIVE (NEGATIVE); UROBILINOGEN,URINE NORMAL MG/DL (0.0-1.0)
[2016-09-21 21:20] LABS: RBC,URINE 0-2 /HPF (0 - 2); WBC,URINE 0-2 /HPF (0 - 2)
[2016-09-21 21:21] LABS: BACTERIA,URINE FEW /HPF; SQUAMOUS EPITHELIAL CELL,UR MODERATE /LPF (NONE/OCC)
[2016-09-21] MEDS: Piperacillin/Tazobactam 3.375 GM in D5W 110 ML IVPB SCH (21:51)
[2016-09-22 00:08] VITALS: BP 121/69
[2016-09-22] MEDS: Ketorolac 30mg Inj IV PRN ×2 (01:52→11:03)
[2016-09-22] MEDS: Piperacillin/Tazobactam 3.375 GM in D5W 110 ML IVPB SCH ×3 (04:07→20:25)
[2016-09-22 04:12] VITALS: BP 140/69
[2016-09-22] MEDS ORDERED: Vancomycin 750mg/D5W 275ml IVPB SCH ×2 (06:00)
[2016-09-22 07:57] VITALS: BP 117/60
[2016-09-22 08:34] LABS: TROPONIN I < 0.30 ng/mL (<=0.30)
[2016-09-22] MEDS: Aspirin Baby 81mg ORAL SCH (09:13)
[2016-09-22] MEDS: Heparin 5000 units/ml inj SUBQ SCH ×2 (09:14→20:32)
--- NOTE | 2016-09-22 11:59 | Diagnostic Imaging Report ---
Indication: Dyspnea Comparison: 09/20/16 A single view chest radiograph was obtained. Findings: No definite infiltrate or pulmonary vascular congestion identified. The heart is normal in size. The aorta is mildly enlarged consistent with atherosclerotic vascular disease. The bones are osteopenic. Impression: No acute disease
[2016-09-22 12:49] VITALS: BP 128/65
[2016-09-22] MEDS ORDERED: Diltiazem 25mg/5ml IV PRN (14:00)
[2016-09-22] MEDS ORDERED: Nitroglycerin Subl 0.4mg tab (Bottle Of 25) SL PRN (14:05)
[2016-09-22 16:00] VITALS: BP 108/48
[2016-09-22] MEDS ORDERED: DuoNeb 0.5-3(2.5)mg/3ml neb HHN PRN (16:30)
[2016-09-22] MEDS ORDERED: Ketorolac 30mg Inj IV PRN (16:30)
[2016-09-22] MEDS ORDERED: Miralax 17gm pkt ORAL PRN (16:30)
[2016-09-22] MEDS: Vancomycin 750 MG in D5W 275 ML IVPB SCH (17:47)
[2016-09-22] MEDS ORDERED: Enalaprilat 2.5mg/2ml Inj IV PRN (18:00)
[2016-09-22 19:00] VITALS: BP 120/57
[2016-09-22] MEDS: Promethazine/Codeine 5ml UD ORAL PRN (22:42)
--- NOTE | 2016-09-22 23:35 | Cardiology Report ---
APPROVED REPORT EKG Measurement Heart [id number] Normal sinus rhythm Nonspecific T wave abnormality Prolonged QT Abnormal ECG
--- NOTE | 2016-09-22 23:40 | Pulmonology Progress Note ---
Assessment/Plan Problems: (1) ACS (acute coronary syndrome) Assessment/Plan awaiting stress study phenergen for cough afebrile now no cultutes yet check cxr. Subjective ROS Limited/Unobtainable: No Interval Events: feeling better, asymptoamtic Constitutional: Reports: no symptoms Allergies: Coded Allergies: MORPHINE (Verified Allergy, Unknown, 09/20/16) COPIED FROM UNCODED SECTION Objective Last 24 Hour Vital Signs Date Time Temp Pulse Resp B/P Pulse Ox O2 Delivery O2 Flow Rate FiO2 09/22/16 19:30 90 20 Room Air 21 09/22/16 19:00 98.6 93 20 120/57 09/22/16 16:00 99.1 101 20 108/48 Room Air 09/22/16 12:49 99.1 102 18 128/65 97 Room Air 09/22/16 11:33 98.6 09/22/16 07:57 98.6 110 18 117/60 99 Room Air 09/22/16 07:42 95 18 Room Air 09/22/16 04:12 98.1 112 18 140/69 95 Room Air 09/22/16 00:08 98.7 116 19 121/69 94 Room Air Intake and Output 09/21/16 09/22/16 19:00 07:00 Intake Total 610 ml 680.000 ml Balance 610 ml 680.000 ml Intake Oral 610 ml 240 ml IV Total 440.000 ml # Voids 6 3 Objective General Appearance: WD/WN HEENT: normocephalic, atraumatic, PERRL Respiratory/Chest: lungs clear Breasts: no masses Cardiovascular: normal peripheral pulses Abdomen: normal bowel sounds, soft, non tender Genitourinary: normal external genitalia Extremities: no clubbing 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, no motor/sensory deficits Microbiology Date/Time Source Procedure Growth Status 09/21/16 21:00 Indwelling Cath Urine Culture - Preliminary NO GROWTH Resulted Laboratory Tests 09/22/16 06:45: Troponin I < 0.30 Current Medications Medications (Trade) Dose Ordered Sig/Rustam Route PRN Reason Start Time Stop Time Status Last Admin Dose Admin Acetaminophen (Tylenol) 650 mg Q4H PRN ORAL Mild Pain/Temp > 100.5 09/22/16 16:30 10/22/16 16:29 09/22/16 17:49 Albuterol/ Ipratropium (DuoNeb 0.5-3(2.5)mg/3ml) 3 ml Q4H PRN HHN Shortness of Breath 09/22/16 16:30 09/27/16 16:29 Aspirin (ASA) 162 mg DAILY ORAL 09/23/16 09:00 10/23/16 08:59 Heparin Sodium (Porcine) (Heparin 5000 units/ml) 5,000 units EVERY 12 HOURS SUBQ 09/22/16 21:00 10/22/16 20:59 09/22/16 20:32 Ketorolac Tromethamine (Toradol 30mg) 30 mg Q6H PRN IV moderate pain ( 4-6) 09/22/16 16:30 09/27/16 16:29 09/22/16 17:18 Nitroglycerin (Ntg) 0.4 mg Q5M PRN SL Prn Chest Pain 09/22/16 14:05 10/22/16 14:04 Ondansetron HCl (Zofran) 4 mg Q6H PRN IVP Nausea & Vomiting 09/22/16 16:30 10/22/16 16:29 Pantoprazole (Protonix) 40 mg DAILY ORAL 09/23/16 09:00 10/23/16 08:59 Piperacillin Sod/ Tazobactam Sod 3.375 gm/Dextrose 110 ml @ 27.5 mls/hr Q8HR@0400,1200,2000 IVPB 09/22/16 20:00 09/26/16 19:59 09/22/16 20:25 Polyethylene Glycol (Miralax) 17 gm DAILYPRN PRN ORAL Constipation 09/22/16 16:30 10/22/16 16:29 Promethazine HCl/ Codeine (Phenergan with Codeine) 5 ml Q4H PRN ORAL For Cough 09/22/16 18:00 10/22/16 17:59 09/22/16 22:42 Temazepam (Restoril) 15 mg HSPRN PRN ORAL Insomnia 09/22/16 16:30 09/29/16 16:29 09/22/16 22:41 Vancomycin HCl (Vanco rx to dose) 1 ea DAILY PRN MISC Per rx protocol 09/23/16 09:00 10/23/16 08:59 Vancomycin HCl/ Dextrose (Vancomycin/D5W) 275 ml @ 183.708 mls/hr Q12HR@0600,1800 IVPB 09/22/16 18:00 09/26/16 17:59 09/22/16 17:47 MALOU TAYLOR Sep 22, 2016 23:40
[2016-09-23] VITALS: BP 130/61
[2016-09-23 04:00] VITALS: BP 130/60
[2016-09-23] MEDS: Piperacillin/Tazobactam 3.375 GM in D5W 110 ML IVPB SCH ×3 (04:27→20:10)
[2016-09-23] MEDS: Promethazine/Codeine 5ml UD ORAL PRN ×4 (04:28→23:52)
[2016-09-23 05:57] LABS: BASOPHILS % (AUTO) 0.5 % (0.0-2.0); EOSINOPHILS % (AUTO) 0.4 % (0.0-3.0); LYMPHOCYTES % (AUTO) 13.7 % (20.0-45.0); MEAN CORPUSCULAR HGB CONC 34.1 G/DL (32.0-36.0); MEAN CORPUSCULAR VOLUME 88 FL (80-99); MEAN PLATELET VOLUME 8.1 FL (6.5-10.1); MONOCYTES % (AUTO) 4.5 % (1.0-10.0); NEUTROPHILS % (AUTO) 80.9 % (45.0-75.0); PLATELET COUNT 162 K/UL (150-450); RED BLOOD COUNT 4.19 M/UL (4.20-5.40); RED CELL DISTRIBUTION WIDTH 12.2 % (11.6-14.8); WHITE BLOOD COUNT 5.3 K/UL (4.8-10.8)
[2016-09-23] MEDS: Vancomycin 750 MG in D5W 275 ML IVPB SCH (06:00)
[2016-09-23 06:20] LABS: ALANINE AMINOTRANSFERASE 9 U/L (3-33); ALBUMIN/GLOBULIN RATIO 1.1 (1.0-2.7); ANION GAP 16 (5-15); ASPARTATE AMINO TRANSFERASE 18 U/L (5-40); CALCIUM 8.6 mg/dL (8.6-10.2); CARBON DIOXIDE 24 mEQ/L (20-30); CHLORIDE 99 mEQ/L (98-107); CREATININE 0.9 mg/dL (0.5-0.9); GLOMERULAR FILTRATION RATE > 60 mL/min (>60); HEMOLYSIS 1; POTASSIUM 3.8 mEQ/L (3.4-4.9); SODIUM 139 mEQ/L (135-145); TOTAL PROTEIN 6.8 g/dL (6.6-8.7)
[2016-09-23 08:15] VITALS: BP 130/62
--- NOTE | 2016-09-23 08:46 | Cardiology Report ---
APPROVED REPORT EXAM: Two-dimensional and M-mode echocardiogram with Doppler and color Doppler. INDICATION LV function M-Mode DIMENSIONS IVSd0.9 (0.7-1.1cm)Left Atrium (MM)4.2 (1.6-4.0cm) LVDd4.1 (3.5-5.6cm)Aortic Root3.3 (2.0-3.7cm) PWd0.9 (0.7-1.1cm)Aortic Cusp Exc.2.1 (1.5-2.0cm) LVDs2.9 (2.5-4.0cm) PWs1.5 cm Normal left ventricular chamber size, systolic function and wall motion. Left ventricular ejection fraction estimated to be 60-65 %. Mild left ventricular hypertrophy by 2-D. Anterior Echo-free space, may be due to pericardial fat or effusion. All other cardiac chamber sizes are within normal limits. Mild focal aortic valve sclerosis with adequate cusp excursion. Mildly thickened mitral valve leaflets with normal excursion. Mild mitral annulus and aortic root calcification. Pulmonic valve not well visualized. Normal tricuspid valve structure. IVC at normal size with physiologic collapse. A color flow and spectral Doppler study was performed and revealed: Mild aortic regurgitation. Trace mitral regurgitation. Mitral diastolic velocities suggest reduced left ventricular relaxation c/w mild LV diastolic dysfunction (Grade I). Trace tricuspid regurgitation. Tricuspid systolic velocities suggests peak right ventricular systolic pressure of 19 mmHg.
[2016-09-23] MEDS: Aspirin Baby 81mg ORAL SCH (09:30)
[2016-09-23] MEDS: HYDROmorphone 1mg/ml Carpuject IVP PRN ×3 (09:35→23:53)
[2016-09-23] MEDS: Heparin 5000 units/ml inj SUBQ SCH ×2 (09:44→20:11)
[2016-09-23 12:15] VITALS: BP 102/55
[2016-09-23 16:00] VITALS: BP 104/56
[2016-09-23] MEDS: Vancomycin 1gm/D5W 275ml IVPB SCH ×2 (17:09)
[2016-09-23 19:00] VITALS: BP 108/61
--- NOTE | 2016-09-23 22:28 | Consultation ---
Consult Note Assessment/Plan [id number] LORAINE PALAFOX M.D. Sep 23, 2016 22:28
--- NOTE | 2016-09-23 22:33 | Pulmonology Progress Note ---
Assessment/Plan Problems: (1) ACS (acute coronary syndrome) (2) Fever (3) Hairy cell leukemia Assessment/Plan cultures are pending ID consult requested phenergen for cough continue empiric treatment Subjective Interval Events: still episodes of fever Allergies: Coded Allergies: MORPHINE (Verified Allergy, Unknown, 09/20/16) COPIED FROM UNCODED SECTION Objective Last 24 Hour Vital Signs Date Time Temp Pulse Resp B/P Pulse Ox O2 Delivery O2 Flow Rate FiO2 09/23/16 20:03 85 18 Room Air 09/23/16 19:00 97.0 88 18 108/61 96 Room Air 09/23/16 16:00 98.8 93 20 104/56 96 Room Air 09/23/16 12:15 98.4 89 21 102/55 96 Room Air 09/23/16 08:15 97.7 86 20 130/62 97 Room Air 09/23/16 06:55 89 18 Room Air 09/23/16 05:23 100.2 09/23/16 04:00 100.2 93 20 130/60 97 Room Air 09/23/16 00:00 98.1 101 18 130/61 97 Room Air Intake and Output 09/22/16 09/23/16 19:00 07:00 Intake Total 846.124 ml 1878.708 ml Balance 846.124 ml 1878.708 ml Intake Oral 240 ml 1040 ml IV Total 606.124 ml 838.708 ml # Voids 2 6 Objective General Appearance: WD/WN HEENT: normocephalic, atraumatic, PERRL Respiratory/Chest: lungs clear Breasts: no masses Cardiovascular: normal peripheral pulses Abdomen: normal bowel sounds, soft, non tender Genitourinary: normal external genitalia Extremities: no clubbing 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, no motor/sensory deficits Microbiology Date/Time Source Procedure Growth Status 09/21/16 20:20 Blood Blood Culture - Preliminary NO GROWTH AFTER 24 HOURS Resulted 09/21/16 20:20 Blood Blood Culture - Preliminary NO GROWTH AFTER 24 HOURS Resulted 09/21/16 21:00 Indwelling Cath Urine Culture - Preliminary Mixed Gram Positive Organism Resulted Laboratory Tests 09/23/16 05:30: White Blood Count 5.3, Red Blood Count 4.19L, Hemoglobin 12.6, Hematocrit 36.8L , Mean Corpuscular Volume 88, Mean Corpuscular Hemoglobin 30.0, Mean Corpuscular Hemoglobin Concent 34.1, Red Cell Distribution Width 12.2, Platelet Count 162, Mean Platelet Volume 8.1, Neutrophils (%) (Auto) 80.9H, Lymphocytes ( %) (Auto) 13.7L, Monocytes (%) (Auto) 4.5, Eosinophils (%) (Auto) 0.4, Basophils (%) (Auto) 0.5, Sodium Level 139, Potassium Level 3.8, Chloride Level 99, Carbon Dioxide Level 24, Anion Gap 16H, Blood Urea Nitrogen 11, Creatinine 0.9, Estimat Glomerular Filtration Rate > 60, Glucose Level 118H, Calcium Level 8.6, Total Bilirubin 0.2, Aspartate Amino Transf (AST/SGOT) 18, Alanine Aminotransferase (ALT/SGPT) 9, Alkaline Phosphatase 98, Pro-B-Type Natriuretic Peptide 75, Total Protein 6.8, Albumin 3.7, Globulin 3.1, Albumin/Globulin Ratio 1.1, Vancomycin Level Trough 7.9 Current Medications Medications (Trade) Dose Ordered Sig/Rustam Route PRN Reason Start Time Stop Time Status Last Admin Dose Admin Acetaminophen (Tylenol) 650 mg Q4H PRN ORAL Mild Pain/Temp > 100.5 09/22/16 16:30 10/22/16 16:29 09/23/16 04:24 Albuterol/ Ipratropium (DuoNeb 0.5-3(2.5)mg/3ml) 3 ml Q4H PRN HHN Shortness of Breath 09/22/16 16:30 09/27/16 16:29 Aspirin (ASA) 162 mg DAILY ORAL 09/23/16 09:00 10/23/16 08:59 09/23/16 09:30 Azithromycin/ Dextrose (Zithromax/D5W) 275 ml @ 275 mls/hr Q24HRS IVPB 09/23/16 22:30 09/29/16 23:29 UNV Heparin Sodium (Porcine) (Heparin 5000 units/ml) 5,000 units EVERY 12 HOURS SUBQ 09/22/16 21:00 10/22/16 20:59 09/23/16 20:11 Hydromorphone HCl 1 mg 1 mg Q4H PRN IVP Severe Pain (Pain Scale 7-10) 09/23/16 07:45 09/30/16 07:44 09/23/16 17:13 Ketorolac Tromethamine (Toradol 30mg) 30 mg Q6H PRN IV moderate pain ( 4-6) 09/22/16 16:30 09/27/16 16:29 09/22/16 17:18 Nitroglycerin (Ntg) 0.4 mg Q5M PRN SL Prn Chest Pain 09/22/16 14:05 10/22/16 14:04 Ondansetron HCl (Zofran) 4 mg Q6H PRN IVP Nausea & Vomiting 09/22/16 16:30 10/22/16 16:29 Pantoprazole (Protonix) 40 mg DAILY ORAL 09/23/16 09:00 10/23/16 08:59 09/23/16 09:31 Piperacillin Sod/ Tazobactam Sod/ Dextrose (Zosyn/D5W) 110 ml @ 27.5 mls/hr Q8HR@0400,1200,2000 IVPB 09/22/16 20:00 09/26/16 19:59 09/23/16 20:10 Polyethylene Glycol (Miralax) 17 gm DAILYPRN PRN ORAL Constipation 09/22/16 16:30 10/22/16 16:29 09/23/16 20:30 Promethazine HCl/ Codeine (Phenergan with Codeine) 5 ml Q4H PRN ORAL For Cough 09/22/16 18:00 10/22/16 17:59 09/23/16 17:14 Temazepam (Restoril) 15 mg HSPRN PRN ORAL Insomnia 09/22/16 16:30 09/29/16 16:29 09/22/16 22:41 Vancomycin HCl (Vanco rx to dose) 1 ea DAILY PRN MISC Per rx protocol 09/23/16 09:00 10/23/16 08:59 Vancomycin HCl 1 gm/Dextrose 275 ml @ 183.708 mls/hr Q12H IVPB 09/23/16 18:00 09/28/16 17:59 09/23/16 17:09 MALOU TAYLOR Sep 23, 2016 22:33
[2016-09-23] MEDS ORDERED: Azithromycin Inj IV ONE (22:47)
[2016-09-23] MEDS ORDERED: Azithromycin 500 MG in D5W 275 ML IV SCH (23:30)
[2016-09-24] VITALS: BP 128/66
--- NOTE | 2016-09-24 01:00 | Consultation ---
DATE OF CONSULTATION: CONSULTING PHYSICIAN: Sascha Godoy M.D. REFERRING PHYSICIAN: Cheyanne Kimbrough M.D. REASON FOR CONSULTATION: Evaluation of the patient for fever and antibiotic management. HISTORY OF PRESENT ILLNESS: The patient is a 61-year-old female with multiple medical problems as listed below, who came to the hospital with cough, shortness of breath, and low-grade fever. Infectious Disease consultation has been requested for further evaluation of the patient and antibiotic management. PAST MEDICAL HISTORY: Significant for, 1. Dizziness. 2. History of bronchitis, pneumonia, and chronic obstructive pulmonary disease. 3. History of GERD. 4. History of sepsis in the past. 5. History of osteoarthritis. 6. Schizophrenia. 7. Depression and anxiety. 8. History of leukemia. MEDICATIONS: On vancomycin and Zosyn. ALLERGIES: Morphine. SOCIAL HISTORY: Significant for smoking. FAMILY HISTORY: Noncontributory. PHYSICAL EXAMINATION: VITAL SIGNS: Pulse 86, respiratory rate 18, blood pressure 108/98, and temperature 100.2 degrees. HEENT: Mild pale conjunctivae. No icterus. NECK: Supple. CHEST: Course breathing sounds. HEART: S1 and S2. ABDOMEN: Soft and nontender. EXTREMITIES: No cyanosis. NEUROLOGIC: Awake and alert. LABORATORY DATA: White blood cells 5.3, hemoglobin 12, and platelets 162,000. UA, unremarkable. BUN 11 creatinine 0.9. ALT, AST, and alkaline phosphatase are unremarkable. Urine culture, Gram-negative organisms. Blood culture is pending. Chest x-ray, no acute process. ASSESSMENT: The patient is a 61-year-old female with cough and shortness of breath, possible bronchitis. Also, it is important to rule out possibility of influenza. PLAN: 1. We will continue the patient on vancomycin and Zosyn. We will add Zithromax for atypical coverage. 2. Monitor CBC. 3. Monitor BMP. 4. Monitor cultures. 5. Rapid influenza test. 6. Based on the patient's clinical course and laboratories, we will do further recommendation. Thank you, Dr. Kimbrough, for allowing me to participate in the care of this patient. I will follow the patient with you during this hospitalization. Sascha Godoy M.D. DR: DIPAK JOB#: [id number] CC:
[2016-09-24] MEDS: Piperacillin/Tazobactam 3.375 GM in D5W 110 ML IVPB SCH ×4 (03:45→20:16)
[2016-09-24] MEDS: Vancomycin 1gm/D5W 275ml IVPB SCH ×2 (03:54)
--- NOTE | 2016-09-24 07:38 | Pulmonology Progress Note ---
Assessment/Plan Assessment/Plan ASSESSMENT atypical chest pain likely 2 to combination of GERD and panic/anxiety GERD anxiety and panic disorder bronchitis hx hairy cell leukemia hyperlipidemia PLAN OF CARE [facility] floor serial troponin x [address] changes, thus r/o for acute [place] cardio follows ECHO with EF 60-65% and RVSP of 19 stress test results negative urine cx + mixed GPO blood cx negative repeated CXR negative no fever for 24 hrs O2 HHN prm antitussive prn influenza screen negative, sputum if able add statin drug abuse counselor on low fat low cholesterol diet DVT, GI prophylaxis continue anxiolytics dc in am case discussed and evaluated by supervising physician Subjective Allergies: Coded Allergies: MORPHINE (Verified Allergy, Unknown, 09/20/16) COPIED FROM UNCODED SECTION Subjective afebrile, no leukocytosis ( no fever for 24 hrs) on RA, pulse oximetry stable still cough, sputum cx pending Objective Last 24 Hour Vital Signs Date Time Temp Pulse Resp B/P Pulse Ox O2 Delivery O2 Flow Rate FiO2 09/24/16 04:00 18 09/24/16 00:00 99.0 79 19 128/66 94 Room Air 09/23/16 20:03 85 18 Room Air 09/23/16 19:00 97.0 88 18 108/61 96 Room Air 09/23/16 16:00 98.8 93 20 104/56 96 Room Air 09/23/16 12:15 98.4 89 21 102/55 96 Room Air 09/23/16 08:15 97.7 86 20 130/62 97 Room Air Intake and Output 09/23/16 09/24/16 19:00 07:00 Intake Total 720 ml 1592.416 ml Balance 720 ml 1592.416 ml Intake Oral 720 ml 840 ml IV Total 752.416 ml # Voids 2 8 General Appearance: WD/WN, no acute distress HEENT: normocephalic, atraumatic, anicteric, mucous membranes moist, PERRL Respiratory/Chest: lungs clear, no respiratory distress, no accessory muscle use Cardiovascular: normal peripheral pulses, normal rate, no gallop/murmur, no JVD Abdomen: normal bowel sounds, soft, non tender - obese Extremities: no edema Neurologic/Psychiatric: no motor/sensory deficits, alert, oriented x 3, responsive Lymphatic: no neck adenopathy Microbiology Date/Time Source Procedure Growth Status 09/21/16 20:20 Blood Blood Culture - Preliminary NO GROWTH AFTER 48 HOURS Resulted 09/21/16 20:20 Blood Blood Culture - Preliminary NO GROWTH AFTER 48 HOURS Resulted 09/23/16 22:38 Nasopharynx Influenza Types A,B Antigen (ALON) - Final Complete 09/21/16 21:00 Indwelling Cath Urine Culture - Preliminary Mixed Gram Positive Organism Resulted Current Medications Medications (Trade) Dose Ordered Sig/Rustam Route PRN Reason Start Time Stop Time Status Last Admin Dose Admin Acetaminophen (Tylenol) 650 mg Q4H PRN ORAL Mild Pain/Temp > 100.5 09/22/16 16:30 10/22/16 16:29 09/23/16 04:24 Albuterol/ Ipratropium (DuoNeb 0.5-3(2.5)mg/3ml) 3 ml Q4H PRN HHN Shortness of Breath 09/22/16 16:30 09/27/16 16:29 Aspirin (ASA) 162 mg DAILY ORAL 09/23/16 09:00 10/23/16 08:59 09/23/16 09:30 Azithromycin/ Dextrose (Zithromax/D5W) 275 ml @ 275 mls/hr Q24HRS IV 09/25/16 00:00 09/30/16 00:59 Diazepam (Valium) 5 mg HSPRN PRN ORAL Insomnia 09/24/16 07:00 10/01/16 06:59 UNV Heparin Sodium (Porcine) (Heparin 5000 units/ml) 5,000 units EVERY 12 HOURS SUBQ 09/22/16 21:00 10/22/16 20:59 09/23/16 20:11 Hydromorphone HCl 1 mg 1 mg Q4H PRN IVP Severe Pain (Pain Scale 7-10) 09/23/16 07:45 09/30/16 07:44 09/23/16 23:53 Ketorolac Tromethamine (Toradol 30mg) 30 mg Q6H PRN IV moderate pain ( 4-6) 09/22/16 16:30 09/27/16 16:29 09/22/16 17:18 Nitroglycerin (Ntg) 0.4 mg Q5M PRN SL Prn Chest Pain 09/22/16 14:05 10/22/16 14:04 Ondansetron HCl (Zofran) 4 mg Q6H PRN IVP Nausea & Vomiting 09/22/16 16:30 10/22/16 16:29 Pantoprazole (Protonix) 40 mg DAILY ORAL 09/23/16 09:00 10/23/16 08:59 09/23/16 09:31 Piperacillin Sod/ Tazobactam Sod/ Dextrose (Zosyn/D5W) 110 ml @ 27.5 mls/hr Q8HR@0400,1200,2000 IVPB 09/22/16 20:00 09/26/16 19:59 09/24/16 06:05 Polyethylene Glycol (Miralax) 17 gm DAILYPRN PRN ORAL Constipation 09/22/16 16:30 10/22/16 16:29 09/23/16 20:30 Promethazine HCl/ Codeine (Phenergan with Codeine) 5 ml Q4H PRN ORAL For Cough 09/22/16 18:00 10/22/16 17:59 09/23/16 23:52 Temazepam (Restoril) 15 mg HSPRN PRN ORAL Insomnia 09/22/16 16:30 09/29/16 16:29 09/24/16 01:10 Vancomycin HCl (Vanco rx to dose) 1 ea DAILY PRN MISC Per rx protocol 09/23/16 09:00 10/23/16 08:59 Vancomycin HCl 1 gm/Dextrose 275 ml @ 183.708 mls/hr Q12H IVPB 09/23/16 18:00 09/28/16 17:59 09/24/16 03:54 Jennifer Watts NP ([facility]) Sep 24, 2016 07:38
[2016-09-24 07:43] VITALS: BP 119/61
[2016-09-24] MEDS: Aspirin Baby 81mg ORAL SCH (08:32)
[2016-09-24] MEDS: Heparin 5000 units/ml inj SUBQ SCH ×2 (08:35→20:00)
[2016-09-24] MEDS: HYDROmorphone 1mg/ml Carpuject IVP PRN ×2 (08:39→15:05)
[2016-09-24] MEDS: Promethazine/Codeine 5ml UD ORAL PRN ×2 (08:39→15:05)
--- NOTE | 2016-09-24 10:11 | Discharge Instructions ---
Discharge Instructions Discharge Instructions Follow up with: PMD Call MD/Return to Hospital if: ferv, chills, chest pain, cough. Diet: cardiac 2 GM Na, low fat Activity: resume normal activities, as tolerated For Congestive Heart Failure Reminder Report to your physician any weight gain of 5 pounds or more in one week. Mac ([facility]enn[facility] Gibson NP Sep 24, 2016 10:11
[2016-09-24] MEDS ORDERED: LIPITOR10 MG ORAL (10:14)
--- NOTE | 2016-09-24 10:21 | Infectious Diseases Prog Note ---
Assessment/Plan Assessment/Plan A: The patient is a 61-year-old female with Urine culture: Mixed GNR ( no significance ) CAP / COPD exacerb Hx of cough, shortness of breath Chest x-ray, no acute process Low-grade fever, SP Flu Neg Dizziness GERD. OA Schizophrenia. Depression and anxiety History of leukemia P: Cont patient on Zosyn and Zithromax d# 2 / 5 , upon DC will change to Augmentin and Zithro to complete the course , and DC vancomycin d# 2 Monitor CBC. Monitor BMP. Monitor culture Subjective Respiratory: Reports: productive cough Allergies: Coded Allergies: MORPHINE (Verified Allergy, Unknown, 09/20/16) COPIED FROM UNCODED SECTION Objective Vital Signs Last 24 Hour Vital Signs Date Time Temp Pulse Resp B/P Pulse Ox O2 Delivery O2 Flow Rate FiO2 09/24/16 07:43 98.8 86 21 119/61 95 Room Air 09/24/16 04:00 18 09/24/16 00:00 99.0 79 19 128/66 94 Room Air 09/23/16 20:03 85 18 Room Air 09/23/16 19:00 97.0 88 18 108/61 96 Room Air 09/23/16 16:00 98.8 93 20 104/56 96 Room Air 09/23/16 12:15 98.4 89 21 102/55 96 Room Air Height (Feet): 5 Height (Inches): 7.00 Weight (Pounds): 196 HEENT: mucous membranes moist Respiratory/Chest: no respiratory distress Abdomen: no organomegaly Microbiology Date/Time Source Procedure Growth Status 09/21/16 20:20 Blood Blood Culture - Preliminary NO GROWTH AFTER 48 HOURS Resulted 09/21/16 20:20 Blood Blood Culture - Preliminary NO GROWTH AFTER 48 HOURS Resulted 09/23/16 22:38 Nasopharynx Influenza Types A,B Antigen (ALON) - Final Complete 09/21/16 21:00 Indwelling Cath Urine Culture - Final Mixed Gram Positive Organism Complete Current Medications Medications (Trade) Dose Ordered Sig/Rustam Route PRN Reason Start Time Stop Time Status Last Admin Dose Admin Acetaminophen (Tylenol) 650 mg Q4H PRN ORAL Mild Pain/Temp > 100.5 09/22/16 16:30 10/22/16 16:29 09/23/16 04:24 Albuterol/ Ipratropium (DuoNeb 0.5-3(2.5)mg/3ml) 3 ml Q4H PRN HHN Shortness of Breath 09/22/16 16:30 09/27/16 16:29 Aspirin (ASA) 162 mg DAILY ORAL 09/23/16 09:00 10/23/16 08:59 09/24/16 08:32 Atorvastatin Calcium (Lipitor) 10 mg BEDTIME ORAL 09/24/16 21:00 10/24/16 20:59 Azithromycin/ Dextrose (Zithromax/D5W) 275 ml @ 275 mls/hr Q24HRS IV 09/25/16 00:00 09/30/16 00:59 Diazepam (Valium) 5 mg HSPRN PRN ORAL Insomnia 09/24/16 07:00 10/01/16 06:59 UNV Heparin Sodium (Porcine) (Heparin 5000 units/ml) 5,000 units EVERY 12 HOURS SUBQ 09/22/16 21:00 10/22/16 20:59 09/24/16 08:35 Hydromorphone HCl 1 mg 1 mg Q4H PRN IVP Severe Pain (Pain Scale 7-10) 09/23/16 07:45 09/30/16 07:44 09/24/16 08:39 Ketorolac Tromethamine (Toradol 30mg) 30 mg Q6H PRN IV moderate pain ( 4-6) 09/22/16 16:30 09/27/16 16:29 09/22/16 17:18 Nitroglycerin (Ntg) 0.4 mg Q5M PRN SL Prn Chest Pain 09/22/16 14:05 10/22/16 14:04 Ondansetron HCl (Zofran) 4 mg Q6H PRN IVP Nausea & Vomiting 09/22/16 16:30 10/22/16 16:29 Pantoprazole (Protonix) 40 mg DAILY ORAL 09/23/16 09:00 10/23/16 08:59 09/24/16 08:32 Piperacillin Sod/ Tazobactam Sod/ Dextrose (Zosyn/D5W) 110 ml @ 27.5 mls/hr Q8HR@0400,1200,2000 IVPB 09/22/16 20:00 09/26/16 19:59 09/24/16 06:05 Polyethylene Glycol (Miralax) 17 gm DAILYPRN PRN ORAL Constipation 09/22/16 16:30 10/22/16 16:29 09/23/16 20:30 Promethazine HCl/ Codeine (Phenergan with Codeine) 5 ml Q4H PRN ORAL For Cough 09/22/16 18:00 10/22/16 17:59 09/24/16 08:39 Temazepam (Restoril) 15 mg HSPRN PRN ORAL Insomnia 09/22/16 16:30 09/29/16 16:29 09/24/16 01:10 Vancomycin HCl (Vanco rx to dose) 1 ea DAILY PRN MISC Per rx protocol 09/23/16 09:00 10/23/16 08:59 Vancomycin HCl 1 gm/Dextrose 275 ml @ 183.708 mls/hr Q12H IVPB 09/23/16 18:00 09/28/16 17:59 09/24/16 03:54 LORAINE PALAFOX M.D. Sep 24, 2016 10:21
[2016-09-24 11:56] VITALS: BP 120/67
[2016-09-24 16:00] VITALS: BP 102/55
[2016-09-24 20:00] VITALS: BP 111/56
[2016-09-24] MEDS ORDERED: Tubing IV Secondary IV ONE (22:55)
[2016-09-24] MEDS ORDERED: D5W 275ml ONE (22:55)
[2016-09-25] VITALS: BP 122/71
[2016-09-25] MEDS ORDERED: Azithromycin 500 MG in D5W 275 ML IV SCH ×2
[2016-09-25] MEDS: HYDROmorphone 1mg/ml Carpuject IVP PRN ×2 (00:05→04:08)
[2016-09-25] MEDS: Piperacillin/Tazobactam 3.375 GM in D5W 110 ML IVPB SCH ×2 (03:45→12:00)
[2016-09-25 04:00] VITALS: BP 127/65
[2016-09-25 08:00] VITALS: BP 122/68
[2016-09-25] MEDS: Heparin 5000 units/ml inj SUBQ SCH (09:00)
[2016-09-25] MEDS: Aspirin Baby 81mg ORAL SCH (09:15)
[2016-09-25] MEDS: Promethazine/Codeine 5ml UD ORAL PRN (09:15)
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
[2016-09-27] MEDS ORDERED: AZITHROMYCIN250 MG ORAL (12:47)
[2016-09-27] MEDS ORDERED: AUGMENTIN 875-1 EAC1 ORAL (12:47)
--- NOTE | 2016-09-27 12:52 | Discharge Summary ---
Discharge Summary Hospital Course Date of Admission Sep 20, 2016 at 13:20 Date of Discharge Sep 25, 2016 at 14:16 Admitting Diagnosis ACS HPI Kandy Rosa is a 61 year old female who was admitted on Sep 20, 2016 at 13: 20 for Acute Coronary Syndrome Hospital Course dc summary#[id number] Discharge Medications New Medications: Amoxicillin/Potassium Clav 875-125* (Augmentin 875-125 Tablet*) 1 Each Tablet 1 TAB ORAL TWICE A DAY, #4 TAB Azithromycin* (Zithromax*) 250 Mg Tablet 500 MG ORAL DAILY, #2 TAB Atorvastatin Calcium* (Lipitor*) 10 Mg Tablet 10 MG ORAL BEDTIME, #30 TAB Continued Medications: Pantoprazole* (Pantoprazole*) 40 Mg Tablet.dr 40 MG ORAL DAILY, TAB Discharge Discharge Disposition Patient was discharged to Home (01) Discharge Diagnoses: Discharge Instructions Discharge Instructions Follow up with: PMD Call MD/Return to Hospital if: ferv, chills, chest pain, cough. Activity: resume normal activities, as tolerated Jennifer Watts NP ([facility]) Sep 27, 2016 12:52
--- NOTE | 2016-09-28 04:08 | Discharge Summary 2 SIG ---
DATE OF ADMISSION: 09/20/2016 DATE OF DISCHARGE: 09/25/2016 REASON FOR ADMISSION: 61-year-old homeless female, came to emergency room complaining of chest pain for two days. She reported pain as a left-sided , throbbing, 7/10, and radiating down her left arm. The patient denied smoking, drug use, and trauma. The patient with a known history of chronic obstructive pulmonary disease as well with schizophrenia, depression, and panic anxiety attacks. In the emergency department, basic laboratory work was done. Troponin negative. Electrolytes stable. Hemoglobin and hematocrit, stable. No leukocytosis. Chest x-ray revealed no acute cardiopulmonary process. EKG revealed normal sinus rhythm. No acute ischemic changes. The patient was admitted for workup for chest pain. ADMITTING DIAGNOSES: 1. Chest pain, 2. Rule out acute coronary syndrome. 3. Schizophrenia. 4. Anxiety and panic attacks. HOSPITAL COURSE: The patient was admitted to telemetry floor. Initially, Cardiology consult was requested. Serial troponin x4 were negative. EKG revealed no ST changes. Therefore, the patient ruled out for acute myocardial infarction. Echocardiogram revealed ejection fraction of 60% to 65% and right ventricular systolic pressure of 19. Eligibility And Occupancy Interviewer ordered stress test. Stress test was negative. No evidence of ischemia. Eligibility And Occupancy Interviewer cleared for discharge. However, the patient developed low-grade fever and ID consult was requested. The patient pancultured, started on empiric antibiotics, and transferred to Med/Surg floor. Urine culture with mixed gram-positive organism. Blood culture negative. Sputum specimen unable to be collected, since the patient had dry cough. Repeated chest x-ray, negative. No fevers for 48 hours. Antitussive provided as needed. Influenza screen test was negative. Lipid panel with hyperlipidemia , statin added to existing regimen. Continue anxiolytics. Chest pain likely due to combination of a pre-existing anxiety and panic disorder and gastroesophageal reflux disease. Continue gastrointestinal prophylaxis at home. DISCHARGE MEDICATIONS: See medication reconciliation list, continue antibiotics for few days as recommended by ID DISCHARGE DIAGNOSES: 1. Atypical chest pain likely related to combination of gastroesophageal reflux disease and panic/anxiety. 2. Gastroesophageal reflux disease. 3. Anxiety and panic disorder. 4. Bronchitis, possible community-acquired pneumonia. 5. Acute coronary syndrome was ruled out. 6. Schizophrenia. 7. Hyperlipidemia. 8. History of hairy cell leukemia. DISCHARGE INSTRUCTIONS: The patient is discharged home. Followup with the primary medical doctor. Cheyanne Kimbrough M.D. I Jennifer SheetsAbel barker DR: FELIX JOB#: [id number] CC: DONNIE
== END 2016-09-25 14:16 | disposition home or self-care (01) | DRG 243 ==
LOC: EMR 11:30 → 2E 13:20 → EDBEDREQ 15:12 → 2E 09-22 03:08 → 4E 09-22 13:54
DX: K21.9 Gastro-esophageal reflux disease without esophagitis (principal); J18.9 Pneumonia, unspecified organism; R07.89 Other chest pain; F41.9 Anxiety disorder, unspecified; Z85.6 Personal history of leukemia; F20.9 Schizophrenia, unspecified; F41.0 Panic disorder [episodic paroxysmal anxiety]; J40 Bronchitis, not specified as acute or chronic; Z88.6 Allergy status to analgesic agent; E78.5 Hyperlipidemia, unspecified; Z59.0 Homelessness; F14.21 Cocaine dependence, in remission
CPT/HCPCS: 36415; 71010; 80053; 80061; 80202; 80300; 81001; 81003; 82550; 82553; 83880; 84443; 84484; 85025; 85610; 85730; 86140; 86710; 87040; 87070; 87086; 87205; 93005; 93017; 93306; 94640; 94664; J7620